=== PATIENT | female | born 2000 ===

== ENCOUNTER 2018-04-02 21:19 | Emergency (ER) | payer MEDICAID ==
[2018-04-02 21:19] VITALS: BMI 70.7
[2018-04-02 21:43] VITALS: BP 136/86; PULSE 109; RESP 20; TEMP 98.2; O2SAT 100
[2018-04-02 22:15] LABS: HCG,QUALITATIVE URINE NEGATIVE (NEGATIVE)
[2018-04-02 22:19] LABS: SQUAMOUS EPITHIAL 4 /hpf (0-5); URINE BACTERIA OCC (<OCC); URINE BILIRUBIN NEGATIVE (NEGATIVE); URINE BLOOD 1+ (NEGATIVE); URINE CLARITY Clear (Clear); URINE COLOR Yellow (YELLOW); URINE GLUCOSE (UA) NORMAL (Normal); URINE LEUKOCYTE ESTERASE 1+ Leu/uL (Negative); URINE PROTEIN 1+ mg/dL (NEGATIVE); URINE UROBILINOGEN NORMAL mg/dL (0.2-1.0)
[2018-04-02] MEDS ORDERED: cefTRIAXone (Rocephin) 250 mg Inj IM STA (23:25)
--- NOTE | 2018-04-02 23:31 | C.PDOC ---
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) - Social History Hx Alcohol Use: No Hx Substance Use: No - Immunization History Hx Tetanus Toxoid Vaccination: No Hx Influenza Vaccination: No Hx Pneumococcal Vaccination: No ED Course And Treatment - Laboratory Results Lab Results: Urine Color Yellow (YELLOW) 04/02/18 21:58 Urine Clarity Clear (Clear) 04/02/18 21:58 Urine pH 7.0 (5.0-8.0) 04/02/18 21:58 Ur Specific [place] 1.009 (1.003-1.030) 04/02/18 21:58 Urine Protein 1+ mg/dL (NEGATIVE) H 04/02/18 21:58 Urine Glucose (UA) Normal mg/dL (Normal) 04/02/18 21:58 Urine Ketones Negative mg/dL (NEGATIVE) 04/02/18 21:58 Urine Blood 1+ (NEGATIVE) H 04/02/18 21:58 Urine Nitrate Negative (NEGATIVE) 04/02/18 21:58 Urine Bilirubin Negative (NEGATIVE) 04/02/18 21:58 Urine Urobilinogen Normal mg/dL (0.2-1.0) 04/02/18 21:58 Ur Leukocyte Esterase 1+ Kt/uL (Negative) H 04/02/18 21:58 Urine WBC (Auto) 7 /hpf (0-5) H 04/02/18 21:58 Urine RBC (Auto) 15 /hpf (0-3) H 04/02/18 21:58 Ur Squamous Epith Cells 4 /hpf (0-5) 04/02/18 21:58 Urine Bacteria Occ (<OCC) H 04/02/18 21:58 Urine HCG, Qual Negative (NEGATIVE) 04/02/18 21:58 Urine HCG, Qual Negative (NEGATIVE) 04/02/18 21:58 O2 Sat by Pulse Oximetry: 100 Disposition - Disposition Disposition: HOME/ ROUTINE Disposition Time: 23:31 Condition: STABLE Prescriptions: Doxycycline Monohydrate 100 mg PO BID 10 Days tablet Nitrofurantoin Macrocrystals [Macrobid] 100 mg PO BID 7 Days cap Instructions: Pelvic Inflammatory Disease (DC), Urinary Tract Infection, Adult (DC) Forms: [facility] ([place]an), General Discharge Instructions - Clinical Impression Clinical Impression: PID (pelvic inflammatory disease), UTI (urinary tract infection)
--- NOTE | 2018-04-03 00:15 | C.PDOC ---
History Of Present Illness 17 year old female presents to the ER with a complaint of hematuria for the past 2 days associated with suprapubic pain for the past 1 month. Patient has an IUD in place, reports having some vaginal discharge, last sexual partner was 1 month ago. Denies fever. Chief Complaint (Nursing): Female Genitourinary History Per: Patient History/Exam Limitations: no limitations Onset/Duration Of Symptoms: Days Current Symptoms Are (Timing): Still Present Quality Of Discomfort: Unable To Describe Associated Symptoms: Other (Vaginal discharge, Hematuria). 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) Family History: States: Unknown Family Hx - Social History Hx Alcohol Use: No Hx Substance Use: No - Immunization History Hx Tetanus Toxoid Vaccination: No Hx Influenza Vaccination: No Hx Pneumococcal Vaccination: No Review Of Systems Constitutional: Negative for: Fever, Chills Eyes: Negative for: Pain, Redness ENT: Negative for: Mouth Swelling Cardiovascular: Negative for: Chest Pain Respiratory: Negative for: Cough, Shortness of Breath Gastrointestinal: Positive for: Abdominal Pain Genitourinary: Positive for: Hematuria, Vaginal Discharge Musculoskeletal: Negative for: Back Pain Skin: Negative for: Rash Neurological: Negative for: Weakness, Numbness, Dizziness Physical Exam - Physical Exam Appears: Well, Non-toxic, No Acute Distress Skin: Normal Color, Warm, No Rash Head: Atraumatic, Normacephalic Eye(s): bilateral: Normal Inspection, PERRL, EOMI Oral Mucosa: Moist Chest: Symmetrical Cardiovascular: Rhythm Regular Respiratory: No Accessory Muscle Use, Other (Normal inspiratory effort) Gastrointestinal/Abdominal: Soft, Tenderness (Suprapubic to palpation), No Distention, No Guarding, No Rebound Back: No CVA Tenderness Pelvic: No Vaginal Bleeding, Vaginal Discharge (Thin theodore discharge), No Cervical Motion Tenderness, Adnexal Tenderness, Tender Uterus, Other (Pelvic exam chaperoned by REDD Ludwig,) Neurological/Psych: Oriented x3, Normal Speech ED Course And Treatment - Laboratory Results Lab Results: Urine Color Yellow (YELLOW) 04/02/18 21:58 Urine Clarity Clear (Clear) 04/02/18 21:58 Urine pH 7.0 (5.0-8.0) 04/02/18 21:58 Ur Specific [place] 1.009 (1.003-1.030) 04/02/18 21:58 Urine Protein 1+ mg/dL (NEGATIVE) H 04/02/18 21:58 Urine Glucose (UA) Normal mg/dL (Normal) 04/02/18 21:58 Urine Ketones Negative mg/dL (NEGATIVE) 04/02/18 21:58 Urine Blood 1+ (NEGATIVE) H 04/02/18 21:58 Urine Nitrate Negative (NEGATIVE) 04/02/18 21:58 Urine Bilirubin Negative (NEGATIVE) 04/02/18 21:58 Urine Urobilinogen Normal mg/dL (0.2-1.0) 04/02/18 21:58 Ur Leukocyte Esterase 1+ Kt/uL (Negative) H 04/02/18 21:58 Urine WBC (Auto) 7 /hpf (0-5) H 04/02/18 21:58 Urine RBC (Auto) 15 /hpf (0-3) H 04/02/18 21:58 Ur Squamous Epith Cells 4 /hpf (0-5) 04/02/18 21:58 Urine Bacteria Occ (<OCC) H 04/02/18 21:58 Urine HCG, Qual Negative (NEGATIVE) 04/02/18 21:58 Urine HCG, Qual Negative (NEGATIVE) 04/02/18 21:58 O2 Sat by Pulse Oximetry: 100 (Room air) Pulse Ox Interpretation: Normal Medical Decision Making Medical Decision Making: Urinalysis ordered. GC/Chlamydia sent. Given pelvic exam and symptoms, will treat patient for PID and UTI with doxycycline, rocephin, and zithromax. Patient discharged home with instructions to follow up with primary and await GC/Chlamydia result. Disposition - Disposition Disposition: HOME/ ROUTINE Disposition Time: 23:31 Condition: STABLE Prescriptions: Doxycycline Monohydrate 100 mg PO BID 10 Days tablet Nitrofurantoin Macrocrystals [Macrobid] 100 mg PO BID 7 Days cap Instructions: Pelvic Inflammatory Disease (DC), Urinary Tract Infection, Adult (DC) Forms: General Discharge Instructions, [facility] (Swedish) - Clinical Impression Clinical Impression: PID (pelvic inflammatory disease), UTI (urinary tract infection) - PA / SHIFT MGR / Resident Statement MD/DO has reviewed & agrees with the documentation as recorded. - Scribe Statement The provider has reviewed the documentation as recorded by the Scribe Silvestre Walker All medical record entries made by the Kathieibkely were at my direction and personally dictated by me. I have reviewed the chart and agree that the record accurately reflects my personal performance of the history, physical exam, medical decision making, and the department course for this patient. I have also personally directed, reviewed, and agree with the discharge instructions and disposition.
== END 2018-04-02 23:51 | disposition home or self-care (01) ==
LOC: C.ER 21:19
DX: N73.9 Female pelvic inflammatory disease, unspecified (principal); N39.0 Urinary tract infection, site not specified
CPT/HCPCS: 81001; 81025; 84703; 87491; 87591; 96372; 99284; J0696